=== PATIENT | female | born 1995 | race Caucasian/White ===

== ENCOUNTER 2020-02-18 08:52 | Emergency (ER) | payer BC ==
[~2020-02-18] VITALS: Ht 167.7 cm; Wt 69.4 kg
[2020-02-18] MEDS ORDERED: ACETAMINOPHEN 500 MG TAB (TYLENOL) PO ONE (09:15)
--- NOTE | 2020-02-18 09:32 | ED GU-Female ---
General Chief Complaint: Female Reproductive Stated Complaint: CRAMPING Nursing Triage Note: AMB TO ED REPORTS LAST NIGHT AFTER HAVING SEX BROKE OUT IN SWEAT WITH NAUSEA AND ABD CRAMPING. TODAY WAS AT WORK WHEN ONSET OF ABD CRAMPING. WITH NAUSEA. HAS NOT TAKEN ANY MEDS FOR THE ABD CRAMPNG. Nursing Sepsis Screen: No Definite Risk Source: patient Exam Limitations: no limitations History of Present Illness Date Seen by Provider: Feb 18, 2020 Time Seen by Provider: 09:15 Initial Comments The patient presents to ER by private conveyance from home with chief complaint of 4 out of 10 cramping low pelvic pain. It started yesterday during intercourse with her which she is in a monogamous relationship with. No history of STDs. No history of discharge, dysuria, hematuria. She did have some nausea and vomited once. No fever chills cough shortness of breath. She discovered yesterday she was . Her last menstrual period was 01/13/20 making her 5 weeks and 1 day. She has not followed up with anybody since discovering this yesterday. She thought the pain might go away but when it was still here 4 out of 10 today she decided to come in to get checked out. She is a . No abdominal surgeries. No significant medical history. She was on control however she says after 5 years on an IUD she was recently started on oral contraceptives by Dr. Amaya and she says she has not been very fastidious about taking them routinely. Allergies and Home Medications Allergies Coded Allergies: No Known Drug Allergies (Unverified , 02/18/20) Patient Home Medication List Home Medication List Reviewed: Yes Review of Systems Review of Systems Constitutional: No chills, No diaphoresis EENTM: No ear discharge, No ear pain Respiratory: No cough, No short of breath Cardiovascular: No chest pain, No palpitations Gastrointestinal: No abdominal pain, No nausea, No vomiting Genitourinary: see HPI; denies burning, denies discharge, denies dysuria, denies frequency Musculoskeletal: No back pain, No joint pain All Other Systemes Reviewed Negative Unless Noted: Yes Past Udtactd-Xhyyil-Aaytnu Hx Patient Social History Alcohol Use: Denies Use Recreational Drug Use: No Smoking Status: Current Everyday Smoker Recent Foreign Travel: No Contact w/Someone Who Travel: No Recent Infectious Disease Expo: No Past Medical History Surgeries: No Respiratory: No Cardiac: No Neurological: No Last Menstrual Period: Jan 13, 2020 Genitourinary: No Gastrointestinal: No Musculoskeletal: No Endocrine: No HEENT: No Cancer: No Integumentary: No Physical Exam Vital Signs Vital Signs - First Documented 02/18/20 08:58 Temp 36.1 Pulse 113 Resp 18 B/P (MAP) 144/85 (104) Pulse Ox 97 Capillary Refill : Less Than 3 Seconds Height, Weight, BMI Height: '" Weight: lbs. oz. kg; 24.00 BMI Method: General Appearance: WD/WN, mild distress HEENT: PERRL/EOMI, pharynx normal Neck: full range of motion, normal inspection Cardiovascular: normal peripheral pulses, regular rate, rhythm Respiratory: no respiratory distress, no accessory muscle use Gastrointestinal: normal bowel sounds, non tender, soft Neurologic/Psychiatric: alert, normal mood/affect, oriented x 3 Skin: normal color, warm/dry Progress/Results/Core Measures Suspected Sepsis Recent Fever Within 48 Hours: No Infection Criteria Present: None New/Unexplained Altered Menta: No Sepsis Screen: No Definite Risk SIRS Temperature: Pulse: 113 Respiratory Rate: 18 Blood Pressure 144 /85 Mean: 104 Results/Orders Lab Results Laboratory Tests Test 02/18/20 09:24 Range/Units Urine Color YELLOW Urine Clarity CLEAR Urine pH 6.0 5-9 Urine Specific Melbeta 1.025 H 1.016-1.022 Urine Protein NEGATIVE NEGATIVE Urine Glucose (UA) NEGATIVE NEGATIVE Urine Ketones TRACE H NEGATIVE Urine Nitrite NEGATIVE NEGATIVE Urine Bilirubin NEGATIVE NEGATIVE Urine Urobilinogen 0.2 < = 1.0 MG/DL Urine Leukocyte Esterase NEGATIVE NEGATIVE Urine RBC (Auto) NEGATIVE NEGATIVE Urine RBC NONE /HPF Urine WBC 5-10 H /HPF Urine Squamous Epithelial Cells 2-5 /HPF Urine Crystals NONE /LPF Urine Bacteria FEW H /HPF Urine Casts NONE /LPF Urine Mucus SMALL H /LPF Urine Other FEW SPERM H /HPF Urine Culture Indicated YES My Orders Orders - REJI MITCHELL Ua Culture If Indicated (02/18/20 09:15) Urine Bedside (02/18/20 09:15) Ed Iv/Invasive Line Start (02/18/20 09:15) Acetaminophen Tablet (Tylenol Tablet) (02/18/20 09:15) Urine Culture (02/18/20 09:24) Us Ob<14 Wks Sngle W/Transvag (02/18/20 09:15) Medications Given in ED Current Medications Medications Dose Ordered Sig/Pedro Route Start Time Stop Time Status Last Admin Dose Admin Acetaminophen 1,000 mg ONCE ONCE PO 02/18/20 09:15 02/18/20 09:19 DC 02/18/20 09:24 1,000 MG Vital Signs/I&O 02/18/20 08:58 Temp 36.1 Pulse 113 Resp 18 B/P (MAP) 144/85 (104) Pulse Ox 97 Capillary Refill : Less Than 3 Seconds Blood Pressure Mean: 104 Progress Note : Time: 09:31 Progress Note Cramping pain low pelvis with early . Our concern would be to rule out ectopic or tubal . Plan to get an ultrasound and Tylenol for her discomfort. Urinalysis and bedside hCG is positive. Diagnostic Imaging Diagonstic Imaging: Ultrasound Plain Films/CT/US/NM/MRI: pelvis Comments [facility], [place] NAME: CADY CASTAÑEDA [facility] REC#: [id number] PT STATUS: REG ER : 1995 PHYSICIAN: REJI MITCHELL MD ADMIT DATE: 02/18/20/ER Signed Date of Exam:02/18/20 US OB<14 WKS SNGLE W/TRANSVAG EXAM: First Trimester ultrasound INDICATIONS: Vaginal bleeding and cramping. Estimated gestational age by LMP: 5 weeks 1 day. TECHNIQUE: The pelvis was scanned using transabdominal and endovaginal technique. Comparison: No prior ultrasound. FINDINGS: There is an intrauterine cystic structure seen within the endometrium. No pole or yolk sac is identified. No subchorionic hemorrhage is seen. Uterus is anteverted. Myometrium is otherwise homogeneous. The left ovary is nonvisualized. The right ovary contains a likely corpus luteum cyst. biometry: Mean sac diameter 15 mm: 5 weeks weeks 5 days. IMPRESSION: Intrauterine gestation of uncertain viability. Recommend follow-up with beta-hCG and ultrasound in 14 days to determine viability. Dictated by: Dictated on workstation # [id number] Dict: 02/18/20 1044 Trans: 02/18/20 1118 [facility] [id number] Interpreted by: NOBLE ALBARADO DO Electronically signed by: NOBLE ALBARADO DO 02/18/20 1118 Reviewed: Reviewed by Me Departure Impression Primary Impression: Cramping affecting , antepartum Additional Impression: Urinary tract infection Qualified Codes: N30.00 - Acute cystitis without hematuria Disposition: HOME, SELF-CARE Condition: Stable Departure-Patient Inst. Decision time for Depature: 11:41 Patient Instructions: Stomach Pain in Early , Urinary Tract Infection, Adult (DC) Add. Discharge Instructions: The initial ultrasound is reassuring but too early to demonstrate any useful information about the viability of the . I recommend you establish care with an cook chili and follow-up in the next 1- 2 weeks. Return to the ER if you're having severe bleeding, pain or other worrisome symptoms. Tylenol 1000 mg every 8 hours as necessary for pain. Keflex one capsule twice a day for the next week to treat bladder infection. Pelvic rest until released by your cook chili. All discharge instructions reviewed with patient and/or family. Voiced understanding. Scripts Cephalexin (Keflex) 500 Mg Capsule 500 MG PO BID for 7 Days, #14 CAP 0 Refills Prov: REJI MITCHELL 02/18/20 Copy Copies To 1: GENA DUNN MD, TITUS J Feb 18, 2020 09:32
[2020-02-18 09:37] LABS: BILIRUBIN,URINE NEGATIVE (NEGATIVE); CLARITY,URINE CLEAR; COLOR,URINE YELLOW; GLUCOSE, URINE (UA) NEGATIVE (NEGATIVE); KETONES,URINE TRACE (NEGATIVE); LEUKOCYTE ESTERASE ,URINE NEGATIVE (NEGATIVE); NITRITE,URINE NEGATIVE (NEGATIVE); PROTEIN,URINE NEGATIVE (NEGATIVE)
[2020-02-18 09:49] LABS: BACTERIA,URINE FEW /HPF; URINE OTHER FEW SPERM /HPF
--- NOTE | 2020-02-18 10:50 | Diagnostic Imaging Report ---
EXAM: First Trimester ultrasound INDICATIONS: Vaginal bleeding and cramping. Estimated gestational age by LMP: 5 weeks 1 day. TECHNIQUE: The pelvis was scanned using transabdominal and endovaginal technique. Comparison: No prior ultrasound. FINDINGS: There is an intrauterine cystic structure seen within the endometrium. No pole or yolk sac is identified. No subchorionic hemorrhage is seen. Uterus is anteverted. Myometrium is otherwise homogeneous. The left ovary is nonvisualized. The right ovary contains a likely corpus luteum cyst. biometry: Mean sac diameter 15 mm: 5 weeks weeks 5 days. IMPRESSION: Intrauterine gestation of uncertain viability. Recommend follow-up with beta-hCG and ultrasound in 14 days to determine viability. Dictated by: Dictated on workstation # [id number]
[2020-02-18] MEDS ORDERED: CEPH-507 PO (11:47)
[2020-02-18 11:56] VITALS: BP 133/67
== END 2020-02-18 11:56 | disposition home or self-care (01) ==
LOC: EDUNIT# 08:52 → ER 08:56
DX: O26.891 Other specified pregnancy related conditions, first trimester (principal); R10.9 Unspecified abdominal pain; N39.0 Urinary tract infection, site not specified; F17.200 Nicotine dependence, unspecified, uncomplicated; Z3A.01 Less than 8 weeks gestation of pregnancy
CPT/HCPCS: 36415; 76801; 76817; 81000; 84703; 87088

== ENCOUNTER 2020-10-05 03:25 | Inpatient (IN) | payer MEDICAID ==
[~2020-10-05] VITALS: Ht 167.7 cm; Wt 100.3 kg
[2020-10-05] VITALS (70 sets, daily range): BP systolic 101–158; BP diastolic 53–99
[~2020-10-05 03:25] MED LIST: CEPH-507 PO
--- NOTE | 2020-10-05 07:38 | History & Physical ---
History and Physical Date Seen by Provider: Oct 05, 2020 Time Seen by Provider: 07:36 This patient is a 25-year-old 1 white female currently at 38-1/7 weeks gestation her is complicated by polyhydramnios with an JACKY of 270 on September 28, 2020. Patient presents now for labor induction due to the polyhydramnios. Patient denies rupture membranes or bleeding. She has had no other problems with this . Her GBS culture was negative. Allergies are none Medications are vitamins Medical social and surgical history is all per the antepartum record HEENT exam is normal Neck is supple with no lymphadenopathy no thyromegaly Abdomen is gravid soft nontender nondistended Extremities show no clubbing cyanosis. There is no Homans' sign. Pelvic exam is pending last exam in clinic was showing a cervix of 1 cm dilated 60% effaced -2 station soft texture and anterior with a vertex presentation Assessment and plan 38 weeks gestation in a patient with notable polyhydramnios. Patient is admitted now for induction of labor. We anticipate a vaginal delivery but would be prepared for if needed 38 weeks with polyhydramnios Allergies and Home Medications Allergies Coded Allergies: No Known Drug Allergies (Unverified , 02/18/20) Home Medications Cephalexin 500 Mg Capsule, 500 MG PO BID Prescribed by: REJI MITCHELL on 02/18/20 1147 Patient Home Medication List Home Medication List Reviewed: Yes GENA DUNN MD Oct 05, 2020 07:38
[2020-10-05] MEDS ORDERED: OXYTOCIN PRE-MIX DRIP 500 ML IV SCH (07:45)
[2020-10-05] MEDS ORDERED: OXYC1TAB87 PO (07:50)
[2020-10-05] MEDS ORDERED: IBUP-1780 PO (07:50)
[2020-10-05] MEDS ORDERED: DOCU-143 PO (07:50)
--- NOTE | 2020-10-05 07:50 | Discharge Inst-Surgical ---
Discharge Inst-Surgical Depart Medication/Instructions New, Converted or Re-Newed RX: RX on Chart Consults/Follow Up Patient Instructions: As directed Orders & Referrals Follow Up Appt: Call to make follow up appt. for patient in 4 weeks. Activity Per routine post vaginal delivery instructions. Please call in RX to patient pharmacy. Diet as tolerated Patient may shower or tub bathe as desired. Activity Activity as Tolerated: No Diet Discharge Diet: No Restrictions GENA DUNN MD Oct 05, 2020 07:50
[2020-10-05 08:01] LABS: BASOPHILS % (AUTO) 0 % (0-10); EOSINOPHILS # (AUTO) 0.1 10^3/uL (0.0-0.3); EOSINOPHILS % (AUTO) 1 % (0-10); HEMATOCRIT 33 % (35-52); HEMOGLOBIN 11.8 g/dL (11.5-16.0); LYMPHOCYTES # (AUTO) 1.7 10^3/uL (1.0-4.0); LYMPHOCYTES % (AUTO) 15 % (12-44); MEAN CORPUSCULAR HEMOGLOBIN 34 pg (25-34); MEAN CORPUSCULAR HGB CONC 35 g/dL (32-36); MEAN CORPUSCULAR VOLUME 95 fL (80-99); MEAN PLATELET VOLUME 9.1 fL (9.0-12.2); MONOCYTES # (AUTO) 1.1 10^3/uL (0.0-1.0); MONOCYTES % (AUTO) 10 % (0-12); NEUTROPHILS # (AUTO) 8.1 10^3/uL (1.8-7.8); NEUTROPHILS % (AUTO) 73 % (42-75); PLATELET COUNT 177 10^3/uL (130-400); WHITE BLOOD COUNT 11.1 10^3/uL (4.3-11.0)
[2020-10-05] MEDS: D5 LR IV SOLUTION 1,000 ML IV SCH ×2 (08:01→14:06)
[2020-10-05 08:47] LABS: BILIRUBIN,URINE NEGATIVE (NEGATIVE); CLARITY,URINE CLEAR; COLOR,URINE DARK YELLOW; GLUCOSE, URINE (UA) NEGATIVE (NEGATIVE); KETONES,URINE NEGATIVE (NEGATIVE); LEUKOCYTE ESTERASE ,URINE 1+ (NEGATIVE); NITRITE,URINE NEGATIVE (NEGATIVE); PROTEIN,URINE NEGATIVE (NEGATIVE)
[2020-10-05 08:59] LABS: AMORPHOUS SEDIMENT,UR FEW AMOR URATES /LPF; BACTERIA,URINE TRACE /HPF
[2020-10-05] MEDS ORDERED: fentaNYL 2 mcg/ml BUPIVA 0.125 100 ML ONE (09:33)
[2020-10-05] MEDS ORDERED: LIDOCAINE/EPI 2% 1:200,00 (XYLOCAINE) 20 ML VIAL ONE (09:33)
[2020-10-05] MEDS ORDERED: PREN-37 PO (09:50)
[2020-10-05] MEDS ORDERED: BUPIVACAINE 0.25% 30 ML (SENSORCAINE) VIAL ONE ×2 (11:20→22:19)
[2020-10-05] MEDS ORDERED: fentaNYL INJ 100 MCG/2 ML AMP ONE ×2 (11:20→21:34)
[2020-10-05] MEDS: EPIDURAL (fentaNYL 2 MCG/ML BUPIVA 0.125%)100 ML BAG EPI PRN ×2 (11:58→19:26)
[2020-10-05] MEDS ORDERED: LACTATED RINGERS 1,000 ML IV ONE ×2 (12:15)
[2020-10-05] MEDS ORDERED: fentaNYL INJ 100 MCG/2 ML AMP INJ ONE (12:15)
[2020-10-05] MEDS ORDERED: NALOXONE 0.4 MG/ML 1 ML (NARCAN) VIAL IV PRN (12:15)
[2020-10-05] MEDS ORDERED: ONDANSETRON 4 MG/2 ML (SDV) Z0FRAN IV PRN (12:15)
[2020-10-05] MEDS ORDERED: diphenhydrAMINE 50 MG/ML INJ (BENADRYL) IM PRN (18:15)
[2020-10-05] MEDS ORDERED: diphenhydrAMINE 50 MG/ML INJ (BENADRYL) IVP PRN (18:30)
[2020-10-05] MEDS ORDERED: METOCLOPRAMIDE INJ 10 MG/2 ML (REGLAN) ONE (19:15)
[2020-10-05] MEDS ORDERED: metroNIDAZOLE 500MG/100ML IVPB 100 ML ONE (19:15)
[2020-10-05] MEDS ORDERED: ceFAZolin 2 GM IV Premixed 50 ML ONE (19:15)
[2020-10-05] MEDS ORDERED: CITRIC ACID/SOB CIT (BICITRA) 30 ML UDC ONE (19:15)
[2020-10-05] MEDS ORDERED: FAMOTIDINE 20MG/2ML IV (PEPCID) ONE (19:16)
--- NOTE | 2020-10-05 21:14 | Progress Note ---
Standard Progress Note Progress Notes/Assess & Plan Date Seen by a Provider: Oct 05, 2020 Time Seen by a Provider: 21:13 Progress/Assessment & Plan This patient has been on Pitocin since about 8 AM. She has been king regularly and vigorously progressed to about 3 cm and has made very slow progress for another half a centimeter in the past 3 to 4 hours. There has been essentially no descent. The presenting part is the vertex but at high station. The bulk of the head is above the pubic bone. Patient does feel pressure now on the top of the symphysis pubis. In light of negative progress and adequate labor we have halted the Pitocin in favor proceeding with delivery GENA DUNN MD Oct 05, 2020 21:14
[2020-10-05] MEDS ORDERED: ceFAZolin INJECTION 2,000 MG in WATER (STERILE) FOR INJECTION 10 ML IV ONE (21:15)
[2020-10-05] MEDS ORDERED: metroNIDAZOLE 500MG/100ML IVPB 100 ML IV ONE (21:15)
[2020-10-05] MEDS ORDERED: CATHETER FLUSH 10 ML SYR IV PRN (21:46)
[2020-10-05] MEDS ORDERED: fentaNYL INJ 100 MCG/2 ML AMP IVP PRN (22:00)
[2020-10-05] MEDS ORDERED: FAMOTIDINE 20MG/2ML IV (PEPCID) IV ONE (22:00)
[2020-10-05] MEDS ORDERED: METOCLOPRAMIDE INJ 10 MG/2 ML (REGLAN) IV ONE (22:00)
[2020-10-05] MEDS ORDERED: TETANUS,DIPTH,PERTUSS P/F (BOOSTRIX) 0.5 ML VIAL IM ONE (22:00)
[2020-10-05] MEDS ORDERED: ONDANSETRON 4 MG/2 ML (SDV) Z0FRAN IVP PRN (22:00)
[2020-10-05] MEDS ORDERED: D5 LR IV SOLUTION 1,000 ML IV SCH (22:00)
[2020-10-05] MEDS ORDERED: MEASLES,MUMPS,RUBELLA 1 EA INJ SC ONE (22:00)
[2020-10-05] MEDS ORDERED: LACTATED RINGERS 1,000 ML IV PRN ×2 (22:00)
[2020-10-05] MEDS ORDERED: CITRIC ACID/SOB CIT (BICITRA) 30 ML UDC PO ONE (22:00)
[2020-10-05] MEDS ORDERED: LIDOCAINE PF 2% 5 ML (XYLOCAINE) VIAL ONE (22:09)
[2020-10-05] MEDS ORDERED: BUPIVACAINE 0.5% 30 ML (SENSORCAINE) VIAL ONE (22:09)
[2020-10-05] MEDS ORDERED: OXYTOCIN PRE-MIX DRIP 1,000 ML IV ONE (22:09)
[2020-10-05] MEDS ORDERED: MEPERIDINE (DEMEROL) INJ 50 MG/ML ONE (22:31)
[2020-10-05] MEDS ORDERED: ONDANSETRON 4 MG/2 ML (SDV) Z0FRAN ONE (22:53)
[2020-10-05] MEDS: OXYTOCIN PRE-MIX DRIP 500 ML IV SCH (23:50)
[2020-10-06] MEDS: KETOROLAC 30 MG/ML VIAL IVP SCH ×2 (00:11→05:54)
[2020-10-06 01:10] VITALS: BP 109/60
[2020-10-06] MEDS: oxyCODONE/APAP 10/325MG (PERCOCET 10) TABLET PO PRN ×4 (04:30→20:04)
[2020-10-06 05:53] VITALS: BP 117/57
--- NOTE | 2020-10-06 06:03 | OPERATIVE REPORT ---
DATE OF SERVICE: 10/05/2020 PREOPERATIVE DIAGNOSIS: Term at 38 weeks' gestation in labor with failure to progress. POSTOPERATIVE DIAGNOSIS: Term at 38 weeks' gestation in labor with failure to progress. OPERATIVE PROCEDURE: Primary low transverse delivery of a viable female infant with Apgars of 7 and 8 at 1 and 5 minutes respectively, weight of 7 pounds, time of 2215 and a cord blood pH of 7.31. OPERATIVE DESCRIPTION: With the patient in supine position under satisfactory epidural analgesia, the patient was prepped and draped in the usual fashion for abdominal surgery. Cain catheter had been placed in the urinary bladder that was left to dependent drainage. A Pfannenstiel incision was made through skin with scalpel, the patient's abdomen entered in the usual manner. Bladder retractor placed in position, clean scalpel used to make a 4 cm hysterotomy incision transversely across the lower uterine segment that was extended by blunt dissection as well. A small amount of clear fluid was released on hysterotomy. Palmer forceps were applied after extending the excision bluntly to facilitate the delivery of a vigorous viable female . Infant had Apgars and stats as noted above. The was bulb suctioned on delivery of the head and again on completion of delivery. The umbilical cord was doubly clamped and cut, and the infant passed to the pediatric nurse in attendance for delivery. Cord bloods were obtained. The placenta delivered spontaneously [place]. It was normal with a 3-vessel cord. The uterus was exteriorized and interior wiped clean with a wet laparotomy sponge. Uterine incision closed with running locked suture of 2-0 Vicryl. Hemostasis was satisfactory, although the uterus was quite atonic responding only minimally to IV Pitocin. A modified B-Robbins suture was placed using 2-0 chromic sutures. This compressed the uterus nicely. The uterus was then returned to abdominal cavity. All blood clot and debris removed from the abdominal cavity. Sponge and needle counts correct, hemostasis assured. Anterior parietal peritoneum was closed with running suture of 2-0 Vicryl. Rectus muscles were closed with that suture. Rectus fascia was closed with 2-0 Vicryl, subcutaneous tissue was closed with 2-0 Vicryl and the skin was stapled. Sponge and needle counts were correct on completion of the procedure. Blood loss was around 250 mL. The patient tolerated the procedure well and was transferred to the recovery room in stable condition. The had remained in the warmer at the attached nursery unit. Job ID: [id number] DocumentID: [id number] Dictated Date: 10/05/2020 22:38:40 Financial Reporting Accountant Date: 10/06/2020 06:02:37 Dictated By: GENA DUNN MD
--- NOTE | 2020-10-06 07:51 | Anesthesia-Regional Post-Op ---
Regional Patient Condition Mental Status: Alert, Oriented x3 Circulation: Same as Pre-Op Headache: Absent Sensation: Full Recovery Motor Block: Absent Post Op Complications Complications None Follow Up Care/Instructions Patient Instructions None needed. Anesthesia/Patient Condition Patient is doing well, no complaints, stable vital signs, no apparent adverse anesthesia problems. No complications reported per nursing. D/C home per [facility] Criteria: No TAMMI GONGORA CRNA Oct 06, 2020 07:51
[2020-10-06] MEDS ORDERED: OXYC1TAB12 PO (08:00)
--- NOTE | 2020-10-06 08:00 | Progress Note ---
Standard Progress Note Progress Notes/Assess & Plan Date Seen by a Provider: Oct 06, 2020 Time Seen by a Provider: 07:59 Progress/Assessment & Plan This patient has been on Pitocin since about 8 AM. She has been king regularly and vigorously progressed to about 3 cm and has made very slow progress for another half a centimeter in the past 3 to 4 hours. There has been essentially no descent. The presenting part is the vertex but at high station. The bulk of the head is above the pubic bone. Patient does feel pressure now on the top of the symphysis pubis. In light of negative progress and adequate labor we have halted the Pitocin in favor proceeding with delivery October 06, 2020 Patient is without complaint. She is ambulating, voiding, tolerating oral intake well and has good pain control. Vital Signs Date Time Temp Pulse Resp B/P (MAP) Pulse Ox O2 Delivery O2 Flow Rate FiO2 10/06/20 05:53 36.8 81 18 117/57 (77) 94 Room Air 10/06/20 01:10 36.8 101 18 109/60 (76) 98 Room Air 10/05/20 23:43 36.8 18 133/75 (94) 98 Room Air 10/05/20 23:30 37 18 128/77 (94) 98 Room Air 10/05/20 23:15 36.8 18 113/81 (92) 99 Room Air 10/05/20 23:00 36.6 18 128/72 (90) 100 Room Air 10/05/20 22:43 37 18 123/99 (107) 99 Room Air 10/05/20 21:56 Room Air 10/05/20 21:45 85 18 126/56 (79) Room Air 10/05/20 21:30 80 18 119/59 (79) 100 Room Air 10/05/20 21:15 81 18 121/58 (79) 100 Non Rebreather 15.00 10/05/20 21:00 80 18 115/61 (79) 100 Non Rebreather 15.00 10/05/20 20:45 77 18 117/71 (86) 100 Non Rebreather 15.00 10/05/20 20:30 88 18 119/73 (88) 100 Non Rebreather 15.00 10/05/20 20:15 88 18 129/60 (83) 99 Room Air 10/05/20 20:00 77 18 128/74 (92) 97 Room Air 10/05/20 19:45 83 18 120/62 (81) 99 Room Air 10/05/20 19:30 83 18 103/55 (71) 99 Room Air 10/05/20 19:15 36.7 85 18 103/53 (70) 99 Room Air 10/05/20 19:00 80 18 108/57 (74) 99 Room Air 10/05/20 18:45 81 18 124/60 (81) 99 Room Air 10/05/20 18:30 95 18 127/59 (81) 100 Room Air 10/05/20 18:15 99 18 131/62 (85) 99 Room Air 10/05/20 18:00 93 18 132/62 (85) 99 Room Air 10/05/20 17:45 85 18 115/62 (79) 98 Room Air 10/05/20 17:30 96 18 121/90 (100) 99 Room Air 10/05/20 17:15 92 18 123/75 (91) 99 Room Air 10/05/20 17:00 87 18 118/57 (77) 99 Room Air 10/05/20 16:45 81 18 113/61 (78) 98 Room Air 10/05/20 16:30 93 18 130/59 (82) 98 Room Air 10/05/20 16:15 76 18 116/68 (84) 99 Room Air 10/05/20 16:00 85 18 113/73 (86) 99 Room Air 10/05/20 15:45 70 18 115/60 (78) 97 Room Air 10/05/20 15:30 78 18 107/58 (74) 98 Room Air 10/05/20 15:15 36.2 87 18 124/63 (83) 100 Room Air 10/05/20 15:00 75 18 120/60 (80) 100 Non Rebreather 15.00 10/05/20 14:45 78 18 126/59 (81) 100 Non Rebreather 15.00 10/05/20 14:30 73 18 124/60 (81) 100 Non Rebreather 15.00 10/05/20 14:15 82 18 124/68 (86) 99 Non Rebreather 15.00 10/05/20 14:11 Non Rebreather 15.00 10/05/20 14:00 82 18 124/68 (86) 99 Room Air 10/05/20 13:45 82 18 124/68 (86) 99 Room Air 10/05/20 13:30 82 18 125/66 (85) 98 Room Air 10/05/20 13:15 84 18 119/56 (77) 98 Room Air 10/05/20 13:00 91 18 119/56 (77) 98 Room Air 10/05/20 12:55 36.1 91 18 101/66 (78) 99 Room Air 10/05/20 12:45 81 18 112/64 (80) 96 Room Air 10/05/20 12:30 87 18 128/59 (82) 97 Room Air 10/05/20 12:25 94 18 113/60 (77) 99 Room Air 10/05/20 12:20 93 18 135/63 (87) 98 Room Air 10/05/20 12:15 124 18 142/67 (92) 98 Room Air 10/05/20 12:10 118 18 158/86 (110) 97 Room Air 10/05/20 12:05 110 18 144/84 (104) 97 Room Air 10/05/20 12:00 105 18 143/71 (95) 98 Room Air 10/05/20 11:55 98 18 131/64 (86) 98 Room Air 10/05/20 11:50 122 18 139/84 (102) 98 Room Air 10/05/20 11:45 109 18 148/73 (98) 99 Room Air 10/05/20 11:40 108 18 139/68 (91) 100 Room Air 10/05/20 11:35 106 18 152/75 (100) 100 Room Air 10/05/20 11:30 105 18 100 Room Air 10/05/20 11:15 100 18 119/73 (88) Room Air 10/05/20 11:00 83 18 127/72 (90) Room Air 10/05/20 10:45 88 18 122/65 (84) Room Air 10/05/20 10:30 83 18 121/67 (85) Room Air 10/05/20 10:15 36.5 82 18 123/69 (87) Room Air 10/05/20 10:00 80 18 117/72 (87) Room Air 10/05/20 09:45 90 18 113/71 (85) Room Air 10/05/20 09:30 83 18 113/71 (85) Room Air 10/05/20 09:15 98 18 115/71 (86) Room Air 10/05/20 09:00 91 18 123/75 (91) Room Air 10/05/20 08:45 89 18 109/85 (93) Room Air 10/05/20 08:30 112 18 109/85 (93) Room Air 10/05/20 08:15 110 18 139/86 (103) Room Air 10/05/20 08:00 93 18 141/80 (100) Room Air I & O 10/06/20 07:00 Intake Total 3350 ml Output Total 1850 ml Balance 1500 ml Vital signs are stable. Patient is afebrile. Fundus is firm below the umbilicus and nontender. Extremities show no clubbing or cyanosis. There is no Homans' sign. Assessment and plan Postoperative day #1 status post primary delivery doing well. Plan is for routine convalescent care with possible discharge home tomorrow GENA DUNN MD Oct 06, 2020 08:00
[2020-10-06] MEDS ORDERED: DOCUSATE SODIUM 100 MG (COLACE) CAP PO SCH (09:00)
[2020-10-06] MEDS ORDERED: IBUPROFEN 800 MG (MOTRIN) TAB PO ONE (12:44)
[2020-10-06] MEDS: DOCUSATE SODIUM 100 MG (COLACE) CAP PO SCH ×2 (12:48→20:04)
[2020-10-06 12:50] VITALS: BP 116/57
[2020-10-06] MEDS: IBUPROFEN 800 MG (MOTRIN) TAB PO SCH ×3 (12:50→23:49)
[2020-10-06] MEDS: EPIDURAL (fentaNYL 2 MCG/ML BUPIVA 0.125%)100 ML BAG EPI PRN (13:31)
[2020-10-06] MEDS ORDERED: metroNIDAZOLE 500MG/100ML IVPB 100 ML IV NR (17:30)
[2020-10-06] MEDS ORDERED: ceFAZolin INJECTION 2,000 MG in WATER (STERILE) FOR INJECTION 10 ML IV ONE (17:30)
[2020-10-06] MEDS ORDERED: ceFAZolin 2 GM/50 ML (PRE-MIXED) IV NR (17:30)
[2020-10-06 18:10] VITALS: BP 107/60
[2020-10-06 23:49] VITALS: BP 110/53
[2020-10-07] MEDS: oxyCODONE/APAP 10/325MG (PERCOCET 10) TABLET PO PRN ×2 (01:02→07:17)
[2020-10-07] MEDS: OXYTOCIN PRE-MIX DRIP 500 ML IV SCH (02:19)
[2020-10-07 05:45] VITALS: BP 109/67
[2020-10-07] MEDS: IBUPROFEN 800 MG (MOTRIN) TAB PO SCH ×2 (05:45→12:29)
--- NOTE | 2020-10-07 08:19 | Progress Note ---
Standard Progress Note Progress Notes/Assess & Plan Date Seen by a Provider: Oct 07, 2020 Time Seen by a Provider: 08:18 Progress/Assessment & Plan This patient has been on Pitocin since about 8 AM. She has been king regularly and vigorously progressed to about 3 cm and has made very slow progress for another half a centimeter in the past 3 to 4 hours. There has been essentially no descent. The presenting part is the vertex but at high station. The bulk of the head is above the pubic bone. Patient does feel pressure now on the top of the symphysis pubis. In light of negative progress and adequate labor we have halted the Pitocin in favor proceeding with delivery October 06, 2020 Patient is without complaint. She is ambulating, voiding, tolerating oral intake well and has good pain control. Vital Signs Date Time Temp Pulse Resp B/P (MAP) Pulse Ox O2 Delivery O2 Flow Rate FiO2 10/06/20 05:53 36.8 81 18 117/57 (77) 94 Room Air 10/06/20 01:10 36.8 101 18 109/60 (76) 98 Room Air 10/05/20 23:43 36.8 18 133/75 (94) 98 Room Air 10/05/20 23:30 37 18 128/77 (94) 98 Room Air 10/05/20 23:15 36.8 18 113/81 (92) 99 Room Air 10/05/20 23:00 36.6 18 128/72 (90) 100 Room Air 10/05/20 22:43 37 18 123/99 (107) 99 Room Air 10/05/20 21:56 Room Air 10/05/20 21:45 85 18 126/56 (79) Room Air 10/05/20 21:30 80 18 119/59 (79) 100 Room Air 10/05/20 21:15 81 18 121/58 (79) 100 Non Rebreather 15.00 10/05/20 21:00 80 18 115/61 (79) 100 Non Rebreather 15.00 10/05/20 20:45 77 18 117/71 (86) 100 Non Rebreather 15.00 10/05/20 20:30 88 18 119/73 (88) 100 Non Rebreather 15.00 10/05/20 20:15 88 18 129/60 (83) 99 Room Air 10/05/20 20:00 77 18 128/74 (92) 97 Room Air 10/05/20 19:45 83 18 120/62 (81) 99 Room Air 10/05/20 19:30 83 18 103/55 (71) 99 Room Air 10/05/20 19:15 36.7 85 18 103/53 (70) 99 Room Air 10/05/20 19:00 80 18 108/57 (74) 99 Room Air 10/05/20 18:45 81 18 124/60 (81) 99 Room Air 10/05/20 18:30 95 18 127/59 (81) 100 Room Air 10/05/20 18:15 99 18 131/62 (85) 99 Room Air 10/05/20 18:00 93 18 132/62 (85) 99 Room Air 10/05/20 17:45 85 18 115/62 (79) 98 Room Air 10/05/20 17:30 96 18 121/90 (100) 99 Room Air 10/05/20 17:15 92 18 123/75 (91) 99 Room Air 10/05/20 17:00 87 18 118/57 (77) 99 Room Air 10/05/20 16:45 81 18 113/61 (78) 98 Room Air 10/05/20 16:30 93 18 130/59 (82) 98 Room Air 10/05/20 16:15 76 18 116/68 (84) 99 Room Air 10/05/20 16:00 85 18 113/73 (86) 99 Room Air 10/05/20 15:45 70 18 115/60 (78) 97 Room Air 10/05/20 15:30 78 18 107/58 (74) 98 Room Air 10/05/20 15:15 36.2 87 18 124/63 (83) 100 Room Air 10/05/20 15:00 75 18 120/60 (80) 100 Non Rebreather 15.00 10/05/20 14:45 78 18 126/59 (81) 100 Non Rebreather 15.00 10/05/20 14:30 73 18 124/60 (81) 100 Non Rebreather 15.00 10/05/20 14:15 82 18 124/68 (86) 99 Non Rebreather 15.00 10/05/20 14:11 Non Rebreather 15.00 10/05/20 14:00 82 18 124/68 (86) 99 Room Air 10/05/20 13:45 82 18 124/68 (86) 99 Room Air 10/05/20 13:30 82 18 125/66 (85) 98 Room Air 10/05/20 13:15 84 18 119/56 (77) 98 Room Air 10/05/20 13:00 91 18 119/56 (77) 98 Room Air 10/05/20 12:55 36.1 91 18 101/66 (78) 99 Room Air 10/05/20 12:45 81 18 112/64 (80) 96 Room Air 10/05/20 12:30 87 18 128/59 (82) 97 Room Air 10/05/20 12:25 94 18 113/60 (77) 99 Room Air 10/05/20 12:20 93 18 135/63 (87) 98 Room Air 10/05/20 12:15 124 18 142/67 (92) 98 Room Air 10/05/20 12:10 118 18 158/86 (110) 97 Room Air 10/05/20 12:05 110 18 144/84 (104) 97 Room Air 10/05/20 12:00 105 18 143/71 (95) 98 Room Air 10/05/20 11:55 98 18 131/64 (86) 98 Room Air 10/05/20 11:50 122 18 139/84 (102) 98 Room Air 10/05/20 11:45 109 18 148/73 (98) 99 Room Air 10/05/20 11:40 108 18 139/68 (91) 100 Room Air 10/05/20 11:35 106 18 152/75 (100) 100 Room Air 10/05/20 11:30 105 18 100 Room Air 10/05/20 11:15 100 18 119/73 (88) Room Air 10/05/20 11:00 83 18 127/72 (90) Room Air 10/05/20 10:45 88 18 122/65 (84) Room Air 10/05/20 10:30 83 18 121/67 (85) Room Air 10/05/20 10:15 36.5 82 18 123/69 (87) Room Air 10/05/20 10:00 80 18 117/72 (87) Room Air 10/05/20 09:45 90 18 113/71 (85) Room Air 10/05/20 09:30 83 18 113/71 (85) Room Air 10/05/20 09:15 98 18 115/71 (86) Room Air 10/05/20 09:00 91 18 123/75 (91) Room Air 10/05/20 08:45 89 18 109/85 (93) Room Air 10/05/20 08:30 112 18 109/85 (93) Room Air 10/05/20 08:15 110 18 139/86 (103) Room Air 10/05/20 08:00 93 18 141/80 (100) Room Air I & O 10/06/20 07:00 Intake Total 3350 ml Output Total 1850 ml Balance 1500 ml Vital signs are stable. Patient is afebrile. Fundus is firm below the umbilicus and nontender. Extremities show no clubbing or cyanosis. There is no Homans' sign. Assessment and plan Postoperative day #1 status post primary delivery doing well. Plan is for routine convalescent care with possible discharge home tomorrow October 07, 2020 Patient is without complaint. She is ambulating, voiding, tolerating oral intake well has good pain control. Patient is requesting discharge home. Vital Signs Date Time Temp Pulse Resp B/P (MAP) Pulse Ox O2 Delivery O2 Flow Rate FiO2 10/07/20 05:45 36.4 84 18 109/67 (81) 97 Room Air 10/06/20 23:49 36.3 87 18 110/53 (72) 96 Room Air 10/06/20 18:10 36.3 87 18 107/60 (76) 97 Room Air 10/06/20 12:50 36.2 92 18 116/57 (76) 97 Room Air I & O 10/07/20 07:00 Intake Total 2600 ml Output Total 1750 ml Balance 850 ml Vital signs are stable. Patient is afebrile. Fundus is firm below the umbilicus and nontender. The surgical incision is clean dry intact. Extremities show no clubbing or cyanosis. There is no Homans' sign. Assessment and plan postoperative day #2 status post primary delivery doing well. Plan is for discharge home with follow-up in clinic Final Diagnosis Primary GENA DUNN MD Oct 07, 2020 08:19
[2020-10-07 10:26] VITALS: BP 108/55
[2020-10-07 12:50] VITALS: BP 108/55
[2020-10-11] MEDS ORDERED: IBUPROFEN 800 MG (MOTRIN) TAB PO SCH
== END 2020-10-07 12:50 | disposition home or self-care (01) | DRG 788 ==
LOC: LDRP 07:16
PROVIDERS: ADMIT Obstetrics & Gynecology; ATTEND Obstetrics & Gynecology
PROC: 10D00Z1 Extraction of Products of Conception, Low, Open Approach (ICD-10-PCS; principal; 2020-10-05 22:00)
DX: O62.0 Primary inadequate contractions (principal); Z3A.38 38 weeks gestation of pregnancy; Z37.0 Single live birth; O40.3XX0 Polyhydramnios, third trimester, not applicable or unspecified
CPT/HCPCS: 36415; 81000; 85025; 86850; 86900; 86901; 87088

== ENCOUNTER 2020-11-29 05:39 | Outpatient (CLI) | payer MEDICAID ==
[~2020-11-29] VITALS: Ht 167.7 cm; Wt 86.3 kg
[~2020-11-29 05:39] MED LIST changes: +DOCU-143 PO; +IBUP-1780 PO; +OXYC1TAB12 PO; +OXYC1TAB87 PO; +PREN-37 PO
== END 2020-11-29 11:39 | disposition home or self-care (01) ==
LOC: PREOP 05:39
PROVIDERS: ATTEND Obstetrics & Gynecology
DX: Z01.818 Encounter for other preprocedural examination (principal)

== ENCOUNTER 2020-12-02 05:56 | Day surgery (SDC) | payer MEDICAID ==
[~2020-12-02] VITALS: Ht 167.7 cm; Wt 86.3 kg
[2020-12-02] VITALS (10 sets, daily range): BP systolic 102–119; BP diastolic 56–75
[2020-12-02] MEDS ORDERED: ceFAZolin INJECTION 1,000 MG in WATER (STERILE) FOR INJECTION 10 ML IV ONE (06:15)
[2020-12-02] MEDS ORDERED: LACTATED RINGERS 1,000 ML IV PRN (06:15)
[2020-12-02 06:32] LABS: BASOPHILS % (AUTO) 1 % (0-10); EOSINOPHILS # (AUTO) 0.1 10^3/uL (0.0-0.3); EOSINOPHILS % (AUTO) 2 % (0-10); HEMATOCRIT 37 % (35-52); HEMOGLOBIN 12.9 g/dL (11.5-16.0); LYMPHOCYTES % (AUTO) 35 % (12-44); MEAN CORPUSCULAR HEMOGLOBIN 32 pg (25-34); MEAN CORPUSCULAR HGB CONC 35 g/dL (32-36); MEAN CORPUSCULAR VOLUME 92 fL (80-99); MEAN PLATELET VOLUME 8.8 fL (9.0-12.2); MONOCYTES # (AUTO) 0.7 10^3/uL (0.0-1.0); MONOCYTES % (AUTO) 13 % (0-12); NEUTROPHILS # (AUTO) 2.9 10^3/uL (1.8-7.8); NEUTROPHILS % (AUTO) 50 % (42-75); PLATELET COUNT 191 10^3/uL (130-400); WHITE BLOOD COUNT 5.8 10^3/uL (4.3-11.0)
[2020-12-02] MEDS ORDERED: ONDANSETRON 4 MG/2 ML (SDV) Z0FRAN ONE (06:55)
[2020-12-02] MEDS ORDERED: MIDAZOLAM 2 MG/2 ML (VERSED) VIAL ONE (06:55)
[2020-12-02] MEDS ORDERED: SEVOFLURANE (ULTANE) 15 ML INHAL SOLN ONE (06:55)
[2020-12-02] MEDS ORDERED: proPOfol 200 MG/20 ML (DIPRIVAN) VIAL IV ONE (06:55)
[2020-12-02] MEDS ORDERED: LIDOCAINE PF 2% 5 ML (XYLOCAINE) VIAL ONE (06:55)
[2020-12-02] MEDS ORDERED: fentaNYL INJ 100 MCG/2 ML AMP ONE (06:55)
--- NOTE | 2020-12-02 07:48 | Progress Note-Pre Operative ---
Pre-Operative Progress Note H&P Reviewed The H&P was reviewed, patient examined and no changes noted. Date Seen by Provider: Dec 02, 2020 Time Seen by Provider: 07:48 Date H&P Reviewed: Dec 02, 2020 Time H&P Reviewed: 07:48 Pre-Operative Diagnosis: DELLA-3 GENA DUNN MD Dec 02, 2020 07:48
--- NOTE | 2020-12-02 07:49 | Progress Note-Post Operative ---
Post-Operative Progess Note Surgeon (s)/Paint Maker (s) Surgeon GENA DUNN MD Paint Maker: None Pre-Operative Diagnosis DELLA-3 Post-Operative Diagnosis Same with pathology pending Procedure & Operative Findings Date of Procedure 12/02/20 Procedure Performed/Findings LEEP procedure Anesthesia Type GETA Estimated Blood Loss Estimated blood loss (mL): minimal Specimens/Packing Specimens Removed LEEP specimen from cervix GENA DUNN MD Dec 02, 2020 07:49
[2020-12-02] MEDS ORDERED: KETOROLAC 30 MG/ML VIAL ONE (07:57)
[2020-12-02] MEDS ORDERED: IBUP-1780 PO (08:09)
[2020-12-02] MEDS ORDERED: OXYC1TAB87 PO ×2 (08:09→11:24)
--- NOTE | 2020-12-02 08:11 | Discharge Inst-Surgical ---
Discharge Inst-Surgical Depart Medication/Instructions New, Converted or Re-Newed RX: RX on Chart Consults/Follow Up Patient Instructions: As directed Orders & Referrals Follow Up Appt: Call to make follow up appt. for patient in 2 weeks. Activity: Rest for 24 hours, than as tolerated. Diet: As tolerated-Clear Liquids only if nauseated. Tomorrow, may shower or tub bathe as desired. No driving for 24 hours, no alcoholic beverages for 24 hours, and nothing per vagina (no tampons, douching, or intercourse) for 4 weeks. Patient to return to the clinic as soon as possible for: Temperature greater than 101F, Severe Pain, Foul discharge from incision or vagina, Excessive Bleeding (more than a period). Activity Activity as Tolerated: No Diet Discharge Diet: No Restrictions GENA DUNN MD Dec 02, 2020 08:11
[2020-12-02] MEDS ORDERED: oxyCODONE/APAP 5/325MG (PERCOCET 5) TABLET PO PRN (08:15)
[2020-12-02] MEDS ORDERED: fentaNYL INJ 100 MCG/2 ML AMP IVP PRN (08:15)
[2020-12-02] MEDS ORDERED: KETOROLAC 30 MG/ML VIAL IVP ONE (08:15)
[2020-12-02] MEDS ORDERED: ONDANSETRON 4 MG/2 ML (SDV) Z0FRAN IVP PRN (08:15)
[2020-12-02] MEDS ORDERED: D5 LR IV SOLUTION 1,000 ML IV SCH (08:15)
--- NOTE | 2020-12-02 09:03 | OPERATIVE REPORT ---
DATE OF SERVICE: 12/02/2020 PREOPERATIVE DIAGNOSIS: DELLA III. POSTOPERATIVE DIAGNOSES: DELLA III with pathology pending. OPERATIVE PROCEDURE: LEEP. OPERATIVE DESCRIPTION: With the patient in the supine position under satisfactory general anesthesia, she was repositioned in dorsal lithotomy position in the Adrian stirrups and prepped and draped in the usual fashion for vaginal surgery. A weighted speculum placed in posterior fornix of vagina, the cervix exposed and grasped anteriorly with single tooth tenaculum. The cervix was saturated with acetic acid and then after several minutes that was evacuated from the vagina. There was an acetowhite lesion occupying about a third of the cervical os. The entire transformation zone and this acetowhite lesion was removed in a single pass with a 10 mm LEEP electrode. That specimen was sent to pathology for permanent section. The defect was now treated with ball cautery to effect hemostasis. With hemostasis complete, the procedure was terminated. Sponge and needle counts were correct. Blood loss was minimal. The patient tolerated the procedure well and was uneventfully awakened from her general anesthesia and transferred to recovery room in stable condition with plans for discharge home PAR. Job ID: [id number] DocumentID: [id number] Dictated Date: 12/02/2020 08:07:20 Nurse Aide Date: 12/02/2020 09:02:35 Dictated By: GENA DUNN MD
--- NOTE | 2020-12-02 13:16 | Anesthesia-General Post-Op ---
General Patient Condition Mental Status/LOC: Same as Preop Cardiovascular: Satisfactory Nausea/Vomiting: Absent Respiratory: Satisfactory Pain: Controlled Complications: Absent Post Op Complications Complications None Follow Up Care/Instructions Patient Instructions None needed. Anesthesia/Patient Condition Patient Condition Patient is doing well, no complaints, stable vital signs, no apparent adverse anesthesia problems. No complications reported per nursing. D/C home per [facility] [place]: Yes NADIA HAMMER CRNA Dec 02, 2020 13:16
== END 2020-12-02 10:05 | disposition home or self-care (01) ==
LOC: SDC 05:56
PROVIDERS: ATTEND Obstetrics & Gynecology
DX: D06.9 Carcinoma in situ of cervix, unspecified (principal); Z79.899 Other long term (current) drug therapy; Z87.891 Personal history of nicotine dependence; Z98.890 Other specified postprocedural states
CPT/HCPCS: 36415; 84703; 85025; 87081; 88307

== ENCOUNTER 2021-06-10 04:13 | Inpatient (IN) | payer MEDICAID ==
[2021-06-10] VITALS (9 sets, daily range): BP systolic 114–136; BP diastolic 60–80
[~2021-06-10] VITALS: Ht 168 cm; Wt 90.0 kg
[2021-06-10 04:46] LABS: BILIRUBIN,URINE NEGATIVE (NEGATIVE); CLARITY,URINE SL CLOUDY; COLOR,URINE YELLOW; GLUCOSE, URINE (UA) NEGATIVE (NEGATIVE); KETONES,URINE NEGATIVE (NEGATIVE); LEUKOCYTE ESTERASE ,URINE NEGATIVE (NEGATIVE); NITRITE,URINE NEGATIVE (NEGATIVE); PROTEIN,URINE NEGATIVE (NEGATIVE)
[2021-06-10 04:58] LABS: BASOPHILS % (AUTO) 0 % (0-10); EOSINOPHILS # (AUTO) 0.1 10^3/uL (0.0-0.3); EOSINOPHILS % (AUTO) 1 % (0-10); HEMATOCRIT 41 % (35-52); HEMOGLOBIN 14.2 g/dL (11.5-16.0); LYMPHOCYTES % (AUTO) 23 % (12-44); MEAN CORPUSCULAR HEMOGLOBIN 31 pg (25-34); MEAN CORPUSCULAR HGB CONC 35 g/dL (32-36); MEAN CORPUSCULAR VOLUME 91 fL (80-99); MEAN PLATELET VOLUME 8.9 fL (9.0-12.2); MONOCYTES # (AUTO) 0.8 10^3/uL (0.0-1.0); MONOCYTES % (AUTO) 9 % (0-12); NEUTROPHILS # (AUTO) 5.6 10^3/uL (1.8-7.8); NEUTROPHILS % (AUTO) 66 % (42-75); PLATELET COUNT 228 10^3/uL (130-400); WHITE BLOOD COUNT 8.5 10^3/uL (4.3-11.0)
[2021-06-10] MEDS ORDERED: fentaNYL INJ 100 MCG/2 ML AMP IVP ONE ×2 (05:00→06:00)
[2021-06-10 05:02] LABS: BACTERIA,URINE TRACE /HPF; RBC,URINE >100 /HPF; SQUAMOUS EPITHELIAL CELL,UR 0-2 /HPF; WBC,URINE 0-2 /HPF
[2021-06-10 05:10] LABS: ALBUMIN 4.3 GM/DL (3.2-4.5); POTASSIUM 3.7 MMOL/L (3.6-5.0)
[2021-06-10 05:11] LABS: CALCIUM 8.9 MG/DL (8.5-10.1)
[2021-06-10 05:12] LABS: TOTAL PROTEIN 7.9 GM/DL (6.4-8.2)
[2021-06-10 05:14] LABS: BILIRUBIN,TOTAL 0.6 MG/DL (0.1-1.0)
[2021-06-10 05:16] LABS: CREATININE SERUM 0.74 MG/DL (0.60-1.30)
--- NOTE | 2021-06-10 05:38 | ED GU-Female ---
General Chief Complaint: Abdominal/GI Problems Stated Complaint: SEVERE ABD PAIN,LEFT SIDE Nursing Triage Note: PT AMB TO ED BY POV WITH C/O SEVERE ABD PAIN BEGINNING YESTERDAY, NAUSEA TONIGHT. PT REPORTS SHE BEGAN HER MENSTRUAL CYCLE YESTERDAY, BUT DOES NOT NORMALLY HAVE BAD CRAMPING WITH HER CYCLE. REPORTS LOWER ABD PAIN 7/10, WORSE ON LEFT SIDE. NON-TENDER TO PALPATION. PT REPORTS LMP Apr, WHICH WAS EARLY FOR HER AND ONLY 2 DAYS LONG. Source: patient Exam Limitations: no limitations History of Present Illness Date Seen by Provider: Jun 10, 2021 Time Seen by Provider: 04:35 Initial Comments This 25-year-old young lady presents to the emergency room with complaints of lower abdominal cramping and vaginal bleeding. Her LMP was May 18 so she is more than a week early for her menstrual cycle. Bleeding started this morning and cramping started yesterday. She is nauseated without vomiting. She denies fever, diarrhea, constipation, or urinary symptoms. She has been using condoms for contraception. Dr. Jon is her music intern. Allergies and Home Medications Allergies Coded Allergies: No Known Drug Allergies (Unverified , 02/18/20) Patient Home Medication List Home Medication List Reviewed: Yes Ibuprofen (Ibuprofen) 800 Mg Tablet, 800 MG PO Q6H PRN for PAIN Prescribed by: GENA COLE on 12/02/20 0809 Oxycodone HCl/Acetaminophen (Percocet 5-325 mg Tablet) 1 Each Tablet, 1 TAB PO Q4H Prescribed by: GENA COLE on 12/02/20 1125 Vit/Iron Fumarate/FA ( Tablet) 1 Each Tablet, 1 EACH PO DAILY, (Reported) Entered as Reported by: CIERRA TIAN on 10/05/20 0950 Review of Systems Review of Systems Constitutional: no symptoms reported EENTM: no symptoms reported Respiratory: no symptoms reported Cardiovascular: no symptoms reported Gastrointestinal: see HPI Genitourinary: see HPI : Yes LMP: May 18, 2021 Musculoskeletal: no symptoms reported Skin: no symptoms reported Psychiatric/Neurological: No Symptoms Reported Endocrine: No Symptoms Reported Hematologic/Lymphatic: No Symptoms Reported Past Pbuoxqi-Jpanle-Bcgweh Hx Patient Social History Tobacco Use?: Yes Smoking Status: Current Everyday Smoker Use of E-Cig and/or Vaping dev: No Substance use?: Yes Substance type: Marijuana Substance frequency: Couple times a week Alcohol Use?: No Pt feels they are or have been: No Immunizations Up To Date Influenza Vaccine Up-to-Date: No; Not Current First/Initial COVID19 Vaccinat: N/A Seasonal Allergies Seasonal Allergies: No Past Medical History Surgery/Hospitalization HX: [facility] 2020 Surgeries: Yes Section Respiratory: No Currently Using CPAP: No Currently Using BIPAP: No Cardiac: No Neurological: No : Yes Last Menstrual Period: May 18, 2021 Genitourinary: No Gastrointestinal: No Musculoskeletal: No Endocrine: No HEENT: No Cancer: No Psychosocial: No Integumentary: No Blood Disorders: No Physical Exam Vital Signs Vital Signs - First Documented 06/10/21 04:25 Temp 36.0 Pulse 102 Resp 18 B/P (MAP) 135/90 (105) Pulse Ox 97 O2 Delivery Room Air Capillary Refill : Less Than 3 Seconds Height, Weight, BMI Height: '" Weight: lbs. oz. kg; 31.00 BMI Method: General Appearance: WD/WN, no apparent distress HEENT: normal ENT inspection Neck: normal inspection Cardiovascular: no edema, no murmur, tachycardia Respiratory: lungs clear, normal breath sounds, no respiratory distress Gastrointestinal: normal bowel sounds, soft, tenderness (Mild suprapubic tenderness) Extremities: normal inspection, no pedal edema Neurologic/Psychiatric: sinker puller II-XII nml as tested, no motor/sensory deficits, alert, normal mood/affect, oriented x 3 Skin: normal color, warm/dry Progress/Results/Core Measures Suspected Sepsis SIRS Temperature: Pulse: 102 Respiratory Rate: 18 Laboratory Tests 06/10/21 04:50: White Blood Count 8.5 Blood Pressure 135 /90 Mean: 105 Laboratory Tests 06/10/21 04:50: Creatinine 0.74, Platelet Count 228, Total Bilirubin 0.6 Results/Orders Lab Results Laboratory Tests Test 06/10/21 04:27 06/10/21 04:50 Range/Units Urine Color YELLOW Urine Clarity SL CLOUDY Urine pH 6.0 5-9 Urine Specific [place] 1.025 H 1.016-1.022 Urine Protein NEGATIVE NEGATIVE Urine Glucose (UA) NEGATIVE NEGATIVE Urine Ketones NEGATIVE NEGATIVE Urine Nitrite NEGATIVE NEGATIVE Urine Bilirubin NEGATIVE NEGATIVE Urine Urobilinogen 0.2 < = 1.0 MG/DL Urine Leukocyte Esterase NEGATIVE NEGATIVE Urine RBC (Auto) 3+ H NEGATIVE Urine RBC >100 H /HPF Urine WBC 0-2 /HPF Urine Squamous Epithelial Cells 0-2 /HPF Urine Crystals NONE /LPF Urine Bacteria TRACE /HPF Urine Casts NONE /LPF Urine Mucus NEGATIVE /LPF Urine Culture Indicated NO White Blood Count 8.5 4.3-11.0 10^3/uL Red Blood Count 4.54 3.80-5.11 10^6/uL Hemoglobin 14.2 11.5-16.0 g/dL Hematocrit 41 35-52 % Mean Corpuscular Volume 91 80-99 fL Mean Corpuscular Hemoglobin 31 25-34 pg Mean Corpuscular Hemoglobin Concent 35 32-36 g/dL Red Cell Distribution Width 12.3 10.0-14.5 % Platelet Count 228 130-400 10^3/uL Mean Platelet Volume 8.9 L 9.0-12.2 fL Immature Granulocyte % (Auto) 0 % Neutrophils (%) (Auto) 66 42-75 % Lymphocytes (%) (Auto) 23 12-44 % Monocytes (%) (Auto) 9 0-12 % Eosinophils (%) (Auto) 1 0-10 % Basophils (%) (Auto) 0 0-10 % Neutrophils # (Auto) 5.6 1.8-7.8 10^3/uL Lymphocytes # (Auto) 2.0 1.0-4.0 10^3/uL Monocytes # (Auto) 0.8 0.0-1.0 10^3/uL Eosinophils # (Auto) 0.1 0.0-0.3 10^3/uL Basophils # (Auto) 0.0 0.0-0.1 10^3/uL Immature Granulocyte # (Auto) 0.0 0.0-0.1 10^3/uL Sodium Level 137 135-145 MMOL/L Potassium Level 3.7 3.6-5.0 MMOL/L Chloride Level 105 98-107 MMOL/L Carbon Dioxide Level 21 21-32 MMOL/L Anion Gap 11 5-14 MMOL/L Blood Urea Nitrogen 11 7-18 MG/DL Creatinine 0.74 0.60-1.30 MG/DL Estimat Glomerular Filtration Rate 115 BUN/Creatinine Ratio 15 Glucose Level 108 H 70-105 MG/DL Calcium Level 8.9 8.5-10.1 MG/DL Corrected Calcium 8.7 8.5-10.1 MG/DL Total Bilirubin 0.6 0.1-1.0 MG/DL Aspartate Amino Transf (AST/SGOT) 19 5-34 U/L Alanine Aminotransferase (ALT/SGPT) 16 0-55 U/L Alkaline Phosphatase 95 40-136 U/L Total Protein 7.9 6.4-8.2 GM/DL Albumin 4.3 3.2-4.5 GM/DL Human Chorionic Gonadotropin, Quant 762 H <5 MIU/ML My Orders Orders - ANAYA PAYNE MD Ua Culture If Indicated (06/10/21 04:23) Cbc With Automated Diff (06/10/21 04:43) Comprehensive Metabolic Panel (06/10/21 04:43) Hcg,Quantitative (06/10/21 04:43) Ed Iv/Invasive Line Start (06/10/21 04:43) Fentanyl Inj (Sublimaze Injection) (06/10/21 05:00) Us Ob<14 Wks Sngle W/Transvag (06/10/21 04:43) Fentanyl Inj (Sublimaze Injection) (06/10/21 06:00) Medications Given in ED Current Medications Medications Dose Ordered Sig/Pedro Route Start Time Stop Time Status Last Admin Dose Admin Fentanyl Citrate 50 mcg ONCE ONCE IVP 06/10/21 05:00 06/10/21 05:01 DC 06/10/21 05:08 50 MCG Fentanyl Citrate 50 mcg ONCE ONCE IVP 06/10/21 06:00 06/10/21 06:01 DC 06/10/21 06:04 50 MCG Vital Signs/I&O 06/10/21 04:25 Temp 36.0 Pulse 102 Resp 18 B/P (MAP) 135/90 (105) Pulse Ox 97 O2 Delivery Room Air Capillary Refill : Less Than 3 Seconds Blood Pressure Mean: 105 Progress Note #1: Time: 05:37 Progress Note Urine test was positive. Since patient has not had an ultrasound and is having bleeding, and pain call the we are obtaining an ultrasound to rule out ectopic. Patient was given fentanyl for treatment of the pain. Progress Note #2: Time: 06:06 Progress Note Ultrasound results were discussed with the grounds foreman. Patient has a significant amount of complex fluid in the pelvis suggesting ruptured ectopic . There was evidence of a possible sac without a pole within the uterus. No live was detected. Case was discussed with Dr. ALEXANDRA. He would like her admitted for observation. He will evaluate her and determine if surgery is appropriate. A second dose of fentanyl is being given for rebound pain. Plan was discussed with patient and questions answered. Progress Note #3: Time: 06:40 Progress Note Patient remains stable. Dr. ALEXANDRA presented to the ER to evaluate the patient. Upon his review of ultrasound images, there appears to be a gestational sac in the uterus but also an ovarian cyst with fluid suspicious for blood posterior to the uterus. Patient remains tender to palpation. Plan is to admit for obs ervation and hopefully avoid surgery as there is still question of viable intrauterine . Care is being transitioned after admission to Dr. Amaya for the remainder of the weekend. Departure Communication (Admissions) Time/Spoke to Admitting Phy: 05:55 Dr. ALEXANDRA Impression Primary Impression: Encounter for assessment for suspected ectopic Additional Impression: Pelvic pain Disposition: ADMITTED INPATIENT Condition: Stable Admissions Decision to Admit Reason: Admit from ER (General) Decision to Admit/Date: Jun 10, 2021 Time/Decision to Admit Time: 05:55 Departure-Patient Inst. Referrals: NO,LOCAL PHYSICIAN (PCP/Family) Primary Care Physician ANAYA PAYNE MD Jun 10, 2021 05:38
[2021-06-10] MEDS ORDERED: LACTATED RINGERS 1,000 ML IV ONE (06:26)
--- NOTE | 2021-06-10 06:39 | Diagnostic Imaging Report ---
Indication: Left-sided pelvic pain with . Comparison: None. Discussion: Transabdominal and transvaginal sonographic evaluation of the pelvis was performed. There is a small saclike structure within the endometrium with internal debris or complexity. No yolk sac or pole identified. Hemorrhagic appearing follicle noted within the right ovary with an additional simple appearing cyst adjacent within the right ovary. There are moderate to large suspected blood products within the pelvis. The ovaries appear normal in echotexture and size bilaterally with normal color Doppler blood flow. Adjacent to the left ovary, there is an indeterminate heterogenous appearing mass with some internal color Doppler blood flow. Measurements were not provided on this mass by the technologist. Etiology is indeterminate. This could represent a decompressed bowel loop. Ectopic with pseudo-gestational sac formation is very rare though ectopic cannot be entirely excluded given the amount of suspected blood products within the pelvis. There is no live ectopic identified. Recommend surgical consultation. Impression: 1. There is a significant amount of complex fluid within the pelvis, likely blood products. There is a complex appearing saclike structure within the endometrium with no pole or yolk sac identified. There is an indeterminate somewhat heterogenous appearing mass adjacent to the left ovary which is very nonspecific. There is no live intrauterine or ectopic identified. A pseudo-gestational sac with ectopic is a very rare finding though given the amount of blood products present, ectopic cannot be excluded. Recommend clinical correlation. Dictated by: Dictated on workstation # [id number]
--- NOTE | 2021-06-10 06:49 | History & Physical-OB/GYN ---
History of Present Illness History of Present Illness Reason for visit/HPI Acute onset pelvic cramping and pain with light bleeding Date of Admission Jun 10, 2021 at 06:06 Date Seen by a Provider: Jun 10, 2021 Time Seen by a Provider: 06:30 I consulted on this patient on 06/10/21 06:41 Attending Physician Stevie Puga DO Admitting Physician Rosalie,Local Physician Consult I was called at home to come evaluate this patient for potential ectopic . Upon arrival patient is clinically stable. US was reviewed and appears to have ovarian cyst approx 3 cm, with some free fluid behind the uterus. There is what appears to be an early IUP, but no pole noted yet. We are still awaiting final read from radiology. Allergies and Home Medications Allergies Coded Allergies: No Known Drug Allergies (Unverified , 02/18/20) Patient Home Medication List Home Medication List Reviewed: Yes Ibuprofen (Ibuprofen) 800 Mg Tablet, 800 MG PO Q6H PRN for PAIN Prescribed by: GENA COLE on 12/02/20 0809 Oxycodone HCl/Acetaminophen (Percocet 5-325 mg Tablet) 1 Each Tablet, 1 TAB PO Q4H Prescribed by: GENA COLE on 12/02/20 1125 Vit/Iron Fumarate/FA ( Tablet) 1 Each Tablet, 1 EACH PO DAILY, (Reported) Entered as Reported by: CIERRA TIAN on 10/05/20 0950 Past [id number]-Cfmkfh-Qekmzk Hx Patient Social History Smoking Status: Current Everyday Smoker 2nd Hand Smoke Exposure: No Recent Hopitalizations: No Have you traveled recently?: No Alcohol Use?: No Substance type: Marijuana Pt feels they are or have been: No Seasonal Allergies Seasonal Allergies: No Surgeries Yes Section Respiratory No Currently Using CPAP: No Currently Using BIPAP: No Cardiovascular No Neurological No Reproductive System : Yes Last Menstrual Period: May 18, 2021 Genitourinary No Gastrointestinal No Musculoskeletal No Endocrine History of Endocrine Disorders: No HEENT History of HEENT Disorders: No Cancer No Psychosocial History of Psychiatric Problem: No Integumentary History of Skin or Integumenta: No Blood Transfusions History of Blood Disorders: No Review of Systems Constitutional: see HPI EENTM: see HPI Respiratory: see HPI Cardiovascular: see HPI Gastrointestinal: see HPI Genitourinary: see HPI : Yes LMP: May 10, 2021 Control/STD Prophylaxis: Condoms Musculoskeletal: see HPI Skin: see HPI Psychiatric/Neurological: See HPI All Other Systems Reviewed Negative Unless Noted: Yes Physical Exam Physical Exam Vital Signs Vital Signs Date Time Temp Pulse Resp B/P (MAP) Pulse Ox O2 Delivery O2 Flow Rate FiO2 06/10/21 04:25 36.0 102 18 135/90 (105) 97 Room Air Capillary Refill : Less Than 3 Seconds Labs Laboratory Tests 06/10/21 04:27: Urine Color YELLOW, Urine Clarity SL CLOUDY, Urine pH 6.0, Urine Specific [place] 1.025H, Urine Protein NEGATIVE, Urine Glucose (UA) NEGATIVE, Urine Ketones NEGATIVE, Urine Nitrite NEGATIVE, Urine Bilirubin NEGATIVE, Urine Urobilinogen 0.2, Urine Leukocyte Esterase NEGATIVE, Urine RBC (Auto) 3+H, Urine RBC >100H, Urine WBC 0-2, Urine Squamous Epithelial Cells 0-2, Urine Crystals NONE, Urine Bacteria TRACE, Urine Casts NONE, Urine Mucus NEGATIVE, Urine Culture Indicated NO 06/10/21 04:50: White Blood Count 8.5, Red Blood Count 4.54, Hemoglobin 14.2, Hematocrit 41, Mean Corpuscular Volume 91, Mean Corpuscular Hemoglobin 31, Mean Corpuscular Hemoglobin Concent 35, Red Cell Distribution Width 12.3, Platelet Count 228, Mean Platelet Volume 8.9L, Immature Granulocyte % (Auto) 0, Neutrophils (%) (Auto) 66, Lymphocytes (%) (Auto) 23, Monocytes (%) (Auto) 9, Eosinophils (%) (Auto) 1, Basophils (%) (Auto) 0, Neutrophils # (Auto) 5.6, Lymphocytes # (Auto) 2.0, Monocytes # (Auto) 0.8, Eosinophils # (Auto) 0.1, Basophils # (Auto) 0.0, Immature Granulocyte # (Auto) 0.0, Sodium Level 137, Potassium Level 3.7, Ch loride Level 105, Carbon Dioxide Level 21, Anion Gap 11, Blood Urea Nitrogen 11, Creatinine 0.74, Estimat Glomerular Filtration Rate 115, BUN/Creatinine Ratio 15, Glucose Level 108H, Calcium Level 8.9, Corrected Calcium 8.7, Total Bili beaulieu 0.6, Aspartate Amino Transf (AST/SGOT) 19, Alanine Aminotransferase (ALT/SGPT) 16, Alkaline Phosphatase 95, Total Protein 7.9, Albumin 4.3, Human Chorionic Gonadotropin, Quant 762H Radiology Studies US report pending General Appearance: WD/WN, Mild Distress Respiratory: Chest Non Tender Cardiovascular: Tachycardia Abdominal: soft (no rebound, guarding, localized tenderness subpubic) Extremity: Normal Capillary Refill, Non Tender Assessment/Plan Assessment and Plan Diagnosis: 25 yo approx 3-4 week IUP Lower abdominal pain Free fluid in pelvis with simple ovarian cyst- possible ruptured cyst. Plan: Admit for observation will consider repeat US if continues to look stable Contacted oncoming THIRD HAND Dr. Amaya to be aware of this situation Will consider emergent laparoscopy if change in status Keep NPO for now and continue pain management. Admission Diagnosis Admission Status: Observation STEVIE PUGA DO Jun 10, 2021 06:48
[2021-06-10] MEDS ORDERED: ONDANSETRON 4 MG/2 ML (SDV) Z0FRAN IVP PRN ×3 (07:00→12:15)
[2021-06-10] MEDS: fentaNYL INJ 100 MCG/2 ML AMP IVP PRN ×3 (07:56→13:32)
[2021-06-10] MEDS ORDERED: LACTATED RINGERS 1,000 ML IV SCH ×3 (09:30→12:15)
--- NOTE | 2021-06-10 09:57 | Progress Note ---
Subjective Date Seen by a Provider: Jun 10, 2021 Time Seen by a Provider: 09:40 Subjective/Events-last exam Patient reports worsening lower pelvic pain. Also reports urinary hesitancy. Straight cath with 500 ml urine. Some nausea, no vomiting. Worsening pain with ambulation. Better with lying flat. She has had more vaginal bleeding, like a period. I have reviewed the films and radiology report. There is a large amount of com plex appearing fluid in the posterior cul de sac. Possible left ovarian cyst, hemorrhagic, with early IUP vs ectopic. Abdomen is distended with generalized tenderness in the lower pelvis. She has mild rebound and voluntary guarding. Objective Exam Vital Signs Date Time Temp Pulse Resp B/P (MAP) Pulse Ox O2 Delivery O2 Flow Rate FiO2 06/10/21 06:40 98 18 155/89 99 Room Air 06/10/21 04:25 36.0 102 18 135/90 (105) 97 Room Air Capillary Refill : Less Than 3 Seconds General Appearance: Mild Distress Respiratory: Chest Non Tender, Lungs Clear Cardiovascular: Regular Rate, Rhythm Gastrointestinal: distended, guarding, rebound, tenderness Results Lab Laboratory Tests 06/10/21 04:27: Urine Color YELLOW, Urine Clarity SL CLOUDY, Urine pH 6.0, Urine Specific [place] 1.025H, Urine Protein NEGATIVE, Urine Glucose (UA) NEGATIVE, Urine Ketones NEGATIVE, Urine Nitrite NEGATIVE, Urine Bilirubin NEGATIVE, Urine Urobilinogen 0.2, Urine Leukocyte Esterase NEGATIVE, Urine RBC (Auto) 3+H, Urine RBC >100H, Urine WBC 0-2, Urine Squamous Epithelial Cells 0-2, Urine Crystals NONE, Urine Bacteria TRACE, Urine Casts NONE, Urine Mucus NEGATIVE, Urine Culture Indicated NO 06/10/21 04:50: White Blood Count 8.5, Red Blood Count 4.54, Hemoglobin 14.2, Hematocrit 41, Mean Corpuscular Volume 91, Mean Corpuscular Hemoglobin 31, Mean Corpuscular Hemoglobin Concent 35, Red Cell Distribution Width 12.3, Platelet Count 228, Mean Platelet Volume 8.9L, Immature Granulocyte % (Auto) 0, Neutrophils (%) (Auto) 66, Lymphocytes (%) (Auto) 23, Monocytes (%) (Auto) 9, Eosinophils (%) (Auto) 1, Basophils (%) (Auto) 0, Neutrophils # (Auto) 5.6, Lymphocytes # (Auto) 2.0, Monocytes # (Auto) 0.8, Eosinophils # (Auto) 0.1, Basophils # (Auto) 0.0, Immature Granulocyte # (Auto) 0.0, Sodium Level 137, Potassium Level 3.7, Chloride Level 105, Carbon Dioxide Level 21, Anion Gap 11, Blood Urea Nitrogen 11, Creatinine 0.74, Estimat Glomerular Filtration Rate 115, BUN/Creatinine Ratio 15, Glucose Level 108H, Calcium Level 8.9, Corrected Calcium 8.7, Total Bilirubin 0.6, Aspartate Amino Transf (AST/SGOT) 19, Alanine Aminotransferase (ALT/SGPT) 16, Alkaline Phosphatase 95, Total Protein 7.9, Albumin 4.3, Human Chorionic Gonadotropin, Quant 762H Assessment/Plan Assessment/Plan Assess & Plan/Chief Complaint 1. probable hemorrhagic left ovarian cyst with hemoperitoneum 2. possible early IUP 3. possible ectopic with pseudosac Plan laparoscopy with irrigation of pelvis/hemoperitoneum, possible left ovarian cystectomy, possible left salpingectomy/salpingostomy. OIP Risks of further bleeding, infection, injury to bowel, bladder, ureter and surrounding tissues has been explained to the patient. We discussed that this could cause miscarriage if there is a viable . Also discussed that the sac in the uterus may not be a gestational sac.. will use prophylactic antibiotics and SCDs. RIKKI FULLER DO Jun 10, 2021 09:57
[2021-06-10] MEDS ORDERED: ceFAZolin 2 GM IV Premixed 50 ML IV NR (10:00)
[2021-06-10] MEDS ORDERED: MIDAZOLAM 2 MG/2 ML (VERSED) VIAL ONE (10:43)
[2021-06-10] MEDS ORDERED: fentaNYL INJ 100 MCG/2 ML AMP ONE (10:43)
[2021-06-10] MEDS ORDERED: HYDROmorphone 2 MG/ML VIAL (DILAUDID) IV NR (10:45)
[2021-06-10] MEDS ORDERED: LACTATED RINGERS 1,000 ML IV PRN (10:45)
[2021-06-10] MEDS ORDERED: morphine INJ 10 MG/ML 1ML (SYR OR VIAL) IVP NR (10:45)
[2021-06-10] MEDS ORDERED: ceFAZolin INJECTION 2,000 MG ONE (10:59)
[2021-06-10] MEDS ORDERED: BUPIVACAINE 0.5% 30 ML (SENSORCAINE) VIAL ONE (10:59)
[2021-06-10] MEDS ORDERED: HYDROmorphone 2 MG/ML VIAL (DILAUDID) ONE (11:28)
[2021-06-10] MEDS ORDERED: LIDOCAINE PF 2% 5 ML (XYLOCAINE) VIAL ONE (12:10)
[2021-06-10] MEDS ORDERED: ONDANSETRON 4 MG/2 ML (SDV) Z0FRAN ONE (12:10)
[2021-06-10] MEDS ORDERED: GLYCOPYRROLATE 0.2 MG/ML (ROBINUL) 2 ML VIAL ONE (12:10)
[2021-06-10] MEDS ORDERED: SEVOFLURANE (ULTANE) 15 ML INHAL SOLN ONE (12:10)
[2021-06-10] MEDS ORDERED: ROCURONIUM 50 MG/5 ML (ZEMURON) VIAL IV ONE (12:10)
[2021-06-10] MEDS ORDERED: KETOROLAC 30 MG/ML VIAL ONE (12:10)
[2021-06-10] MEDS ORDERED: proPOfol 200 MG/20 ML (DIPRIVAN) VIAL IV ONE (12:10)
[2021-06-10] MEDS ORDERED: NEOSTIGMINE 3 MG/3 ML VIAL ONE (12:10)
[2021-06-10] MEDS ORDERED: morphine INJ 4 MG/ML 1 ML (VIAL/SYRINGE) IV PRN (12:15)
[2021-06-10] MEDS ORDERED: NALOXONE 0.4 MG/ML 1 ML (NARCAN) VIAL IV PRN (12:15)
--- NOTE | 2021-06-10 12:19 | Operative Report ---
Operative Report Date of Procedure/Surgery Jun 10, 2021 Surgeon (s) RIKKI FULLER DO Hand Paster (s): NA Post-Operative Diagnosis ruptured left ectopic hematoperitoneum right ovarian cyst x 2 Procedure Performed laparoscopy with left salpingectomy, lysis of adhesions, right ovarian cyst fulgeration x 2 and irrigation of hematoperitoneum Description of Procedure Anesthesia Type: General Estimated blood loss (mL): 200 Specimen(s) collected/removed left tube and ovary Findings of the Procedure extensive hematoperitoneum normal appearing uterus old blood from vagina left tube edematous and ruptured, ectopic not specifically identified adhesions of the left tube and rectum and the omentum to the uterine fundus adhesions in the right pelvis, normal appearing appendix right ovary with cysts x 2 (2-3 cm), clear fluid otherwise normal appearing right and left ovary Allergies and Home Medications Allergies Coded Allergies: No Known Drug Allergies (Unverified , 02/18/20) Patient Home Medication List Home Medication List Reviewed: Yes Discontinued Medications Ibuprofen (Ibuprofen) 800 Mg Tablet, 800 MG PO Q6H PRN for PAIN Prescribed by: GENA COLE on 12/02/20 0809 Last Action: Discontinued Oxycodone HCl/Acetaminophen (Percocet 5-325 mg Tablet) 1 Each Tablet, 1 TAB PO Q4H Prescribed by: GENA COLE on 12/02/20 1125 Last Action: Discontinued Vit/Iron Fumarate/FA ( Tablet) 1 Each Tablet, 1 EACH PO DAILY, (Reported) Entered as Reported by: CIERRA TIAN on 10/05/20 0950 Last Action: Discontinued RIKKI FULLER DO Jun 10, 2021 12:19
[2021-06-10] MEDS ORDERED: IBUP-844 PO (12:34)
[2021-06-10] MEDS ORDERED: ACET-93 PO (12:34)
--- NOTE | 2021-06-10 12:37 | Discharge Inst-Women's Service ---
Discharge Inst-Women's Serv Depart Medication/Instructions New, Converted or Re-Newed RX: Transmitted to Pharmacy (oxycodone previously transmitted to preferred pharmacy) Instructions expect to have vaginal bleeding like a period for up to a week. Call if soaking > 1 pad per hour x 2 hours Final Diagnosis ruptured left ectopic hematoperitoneum right ovarian cysts Problems Reviewed?: Yes Consults/Follow Up Additional Follow Up: Yes (1 week with Amaya for incision check) Activity Activity: Activity as Tolerated Driving Instructions: No Driving for 24 Hours NO SMOKING: NO SMOKING Nothing Inside Vagina: No Douching, No [place], No Tampons Diet Discharge Diet: No Restrictions Symptoms to Report to : Bleeding Excessive, Pain Increased, Fever Over 101 Degrees F, Vaginal Bleeding Increase, Cramps in Feet or Legs, Vaginal Discharge Foul For Any Problems or Questions: Contact Your Physician Skin/Wound Care Infection Signs and Symptoms: Increased Redness, Foul Odor of Wound, Increased Drainage, Skin Itchy or Has a Rash, Increased Swelling, Temperature Above 101 F Operative Area Clean and Dry: You May Remove Bandage (in 2 days, or if soiled, wet) Stitches/Maria Stein/Dermabond: Dermabond Bathing Instructions: RIKKI Banks DO Jun 10, 2021 12:37
[2021-06-10] MEDS: SIMETHICONE 80 MG (MYLICON) CHEW PO PRN ×3 (15:46→22:15)
[2021-06-10] MEDS: ACETAMINOPHEN 500 MG TAB (TYLENOL) PO SCH (15:47)
[2021-06-10] MEDS: IBUPROFEN 600 MG (MOTRIN) TAB PO SCH (18:07)
[2021-06-10] MEDS ORDERED: CHLORASEPTIC LOZENGE MM ONE (19:22)
[2021-06-11 00:32] VITALS: BP 109/52
[2021-06-11] MEDS: ACETAMINOPHEN 500 MG TAB (TYLENOL) PO SCH ×2 (00:33→09:41)
[2021-06-11] MEDS: IBUPROFEN 600 MG (MOTRIN) TAB PO SCH ×2 (00:33→05:19)
[2021-06-11 05:18] VITALS: BP 114/53
[2021-06-11] MEDS ORDERED: CHLORASEPTIC LOZENGE MM PRN (07:15)
--- NOTE | 2021-06-11 09:11 | Progress Note ---
Standard Progress Note Progress Notes/Assess & Plan Date Seen by a Provider: Jun 11, 2021 Time Seen by a Provider: 09:00 Progress/Assessment & Plan 06/11/21 06/11/21 00:32 05:18 Temp 37.0 36.8 Pulse 81 79 Resp 18 18 B/P (MAP) 109/52 (71) 114/53 (73) Pulse Ox 97 98 O2 Delivery Room Air Room Air 06/11/21 00:00 Intake Total 1400 ml Output Total 50 ml Balance 1350 ml POD 1 s/p Laparoscopy with left salpingectomy, right ovarian cyst fulgeration x 2, irrigation of hemoperitoneum, lysis of adhesions She states she is feeling much better. Able to sit up and tolerating diet, ambulating. Had some shoulder pain, but this is improved. Abdomen is soft and appropriately tender. incisions are clean/dry dressing intact. Plan DC today RIKKI FULLER DO Jun 11, 2021 09:10
[2021-06-11 09:43] VITALS: BP 121/56
--- NOTE | 2021-06-11 11:21 | Anesthesia-General Post-Op ---
General Patient Condition Mental Status/LOC: Same as Preop Cardiovascular: Satisfactory Nausea/Vomiting: Absent Respiratory: Satisfactory Pain: Controlled Complications: Absent Post Op Complications Complications None Follow Up Care/Instructions Patient Instructions None needed. Anesthesia/Patient Condition Patient Condition Patient is doing well, no complaints, stable vital signs, no apparent adverse anesthesia problems. No complications reported per nursing. GARRETT DURHAM CRNA Jun 11, 2021 11:21
== END 2021-06-11 09:52 | disposition home or self-care (01) | DRG 817 ==
LOC: EDUNIT# 04:13 → ER 04:17 → EDLOC 06:06 → LDRP 06:06
PROVIDERS: ADMIT Obstetrics & Gynecology; ATTEND Obstetrics & Gynecology
PROC: 0U504ZZ Destruction of Right Ovary, Percutaneous Endoscopic Approach (ICD-10-PCS; 2021-06-10)
PROC: 0W9J4ZZ Drainage of Pelvic Cavity, Percutaneous Endoscopic Approach (ICD-10-PCS; 2021-06-10)
PROC: 0UB64ZZ Excision of Left Fallopian Tube, Percutaneous Endoscopic Approach (ICD-10-PCS; principal; 2021-06-10 10:50)
DX: O34.81 Maternal care for other abnormalities of pelvic organs, first trimester (principal); K66.1 Hemoperitoneum; Z3A.01 Less than 8 weeks gestation of pregnancy; N83.201 Unspecified ovarian cyst, right side
CPT/HCPCS: 36415; 76801; 76817; 80053; 81000; 84702; 84703; 85025